=== PATIENT | female | born 1965 | race Two or more races ===

== ENCOUNTER 2025-06-25 06:38 | Inpatient (IN) | payer OTHER ==
[~2025-06-25] VITALS: Ht 165.1 cm; Wt 90.2 kg
[2025-06-25] VITALS (16 sets, daily range): BP systolic 112–149; BP diastolic 60–92; PULSE 52–79; RESP 11–20; TEMP 97.7–98.8; O2SAT 95–100
[~2025-06-25 06:38] MED LIST: APIX5TAB PO; ATOR20TA PO; EMPA1TAB3 PO; LOSA100T33 PO; SITA50TA28 PO
[2025-06-25] MEDS: IODIXANOL 320MG/ML 100ML BTL IV ONE ×2 (07:20→08:43)
--- NOTE | 2025-06-25 07:52 | ECG ---
[facility] Test Date: 2025-06-25 Test Time: 07:31:29 Pat Name: REID GARCÍA Department: Room: [address] [place] [address] Gender: F Supervisor [employer]: : 1965 Requested By: RAFA ABDI Order Number: [id number] Reading MD: Adi Salazar Measurements Intervals Bruno Rate: 62 P: -19 MD: 132 QRS: -71 QRSD: 82 T: 17 QT: 436 QTc: 442 Interpretive Statements Normal sinus rhythm Left axis deviation Pulmonary disease pattern RSR' or QR pattern in V1 suggests right ventricular conduction delay Septal infarct , age undetermined Electronically Signed On 06-25-2025 22:18:08 PDT by Adi Salazar Please click the below link to view image of tracing.
[2025-06-25] MEDS: LIDOCAINE 2%HCL (LOCAL ANESTH.) INJ 20ML MDV ONE (07:59)
[2025-06-25] MEDS: HEPARIN SODIUM (PORCINE) 5000 UNITS/ML 1ML VIAL ONE (07:59)
[2025-06-25] MEDS: VERAPAMIL 2.5MG/ML INJ 2ML VIAL IV ONE (07:59)
[2025-06-25] MEDS: fentaNYL CITRATE 100 MCG/2 ML VL ONE (08:03)
[2025-06-25] MEDS: MIDAZOLAM HCL 2MG/2ML 2ml VIAL (1mg/ml) ONE (08:03)
[2025-06-25] MEDS: ANGIOMAX 250 MG VIAL IV ONE (08:29)
[2025-06-25] MEDS: SODIUM CHL 0.9% 50 ML ONE (08:29)
[2025-06-25] MEDS: TICAGRELOR 90 MG TAB ONE (08:54)
[2025-06-25] MEDS ORDERED: MORPHINE SULFATE INJ 2 MG/ml SYRG IV PRN (09:45)
[2025-06-25] MEDS ORDERED: NITROGLYCERIN 0.4 MG SL TAB SL PRN (09:45)
--- NOTE | 2025-06-25 10:46 | DVHOP2 ---
Operative Report Operative Report CARDIAC PRISON OFFICER PROCEDURE REPORT [place], [place] Date of Service: 06/25/25 Applications Trainer: Rafa Abdi MD PROCEDURES PERFORMED: Coronary angiogram, left heart catheterization, conscious sedation administration and supervision, less than 15 minutes; fluoroscopy use and interpretation. sedation 15-30 mins, PTCA 1 vessel, PCI 1 vessel PREOPERATIVE DIAGNOSES: Abnormal stress test with CCS class 3 angina, POSTOP DIAGNOSIS: 1v cad DESCRIPTION OF PROCEDURE: The patient or appropriate family signed informed consent understanding the risks, benefits and alternatives of the procedure, they wished to proceed. The patient was [place] [facility] [place] The patient was prepped in a sterile fashion. Sedation was used per cardiac cath protocol. I administered 2 mL of 2% lidocaine to the right wrist. With an antegrade front wall puncture. I cannulated the right radial artery and placed a 6-[place] Glidesheath slender. Next, an intra-arterial spasmolytic was administered. Next, a - 6[place] catheter and XB 3.5 and XB 3 guide and were used for coronary angiogram and LVEDP measurement and pressure pullback. At the completion of procedure, all guides and wires were removed, and there were no immediate complications. FINDINGS: RCA: Moderate vessel off the right sinus of Valsalva, there is no severe flow limiting stenosis. mild prox RCA plaque and rpda 30% stenosis diffuse LEFT MAIN: Moderate size left main, it bifurcates into LAD and circumflex. patent CIRCUMFLEX: Moderate caliber vessel coming off the left main with no flow limiting stenosis. OM1 has an ostial 60% stenosis. mid and distal CX is patent . LAD: LAD is a moderate caliber vessel coming of the left main. prox LAD is patent but very tortous vessel. mid LAD has a focal 80% stenosis after a llarge bend. apical LAD is patent with mild plaque INTERVENTION: We decided to proceed with coronary intervention. I started with a 6F __XB 3.5 __ Guide to intubate the _LM but the guide preferred the CX . therefore i changed to a shorter XB 3 guide and intubated the LM _. Angiomax bolus and gtt was started. Following this, I decided to wire using an .014 choice PT floppy across the culprit lesion with ease. At this time, we performed balloon angioplasty with a _2.5 x 15 mm [id number]__ ATMS over __15__ seconds with __2__ number of inflations. Following this, I decided to place a stent using a 2.5 x 18 mm onyx____ stent inflated up to __16__ ATMS over 15 seconds with two separate inflations. Following this, the stent balloon removed and angio performed showing 0% residual stenosis. RUFUS pre/post: 3./3 CONCLUSIONS: 1. sp pci to 80% mid LAD hazy stenosis PLAN: Aggressive risk factor modification and medical management for the patient. plavix x 1 year resume DOAC eliquis for hx of AFib but pt is currently in SR RAFA ABDI MD Jun 25, 2025 10:46
[2025-06-25] MEDS: MORPHINE SULFATE INJ 2 MG/ml SYRG IV ONE (12:46)
[2025-06-25] MEDS: CLOPIDOGREL BISULFATE 75 MG TAB PO ONE (18:16)
[2025-06-26 01:00] VITALS: BP 123/74; PULSE 55; RESP 18; TEMP 98.2; O2SAT 98
[2025-06-26 05:00] VITALS: BP 122/67; PULSE 68; RESP 18; TEMP 98.2; O2SAT 97
--- NOTE | 2025-06-26 07:46 | ECG ---
[facility] Test Date: 2025-06-25 Test Time: 09:02:41 Pat Name: REID GARCÍA Department: Room: [address] [place] [address] 4 Gender: F [employer] Operator: : 1965 Requested By: RAFA ABDI Order Number: [id number] Reading MD: Adi Salazar Measurements Intervals Andrews Rate: 55 P: 43 CA: 168 QRS: -59 QRSD: 84 T: 14 QT: 470 QTc: 449 Interpretive Statements Sinus bradycardia Left axis deviation RSR' or QR pattern in V1 suggests right ventricular conduction delay Septal infarct , age undetermined Electronically Signed On 06-26-2025 22:53:20 PDT by Adi Salazar Please click the below link to view image of tracing.
[2025-06-26 08:00] VITALS: PULSE 76; PULSE 91; RESP 18
[2025-06-26 09:23] VITALS: BP 132/88; PULSE 66; RESP 20; TEMP 97.9; O2SAT 97
[2025-06-26] MEDS ORDERED: CLOP75TA70 PO (10:06)
[2025-06-26] MEDS: CLOPIDOGREL BISULFATE 75 MG TAB PO SCH (10:13)
[2025-06-26 11:14] VITALS: BP 132/72; PULSE 77; RESP 20; TEMP 98.8; O2SAT 97
== END 2025-06-26 12:20 | disposition home or self-care (01) | DRG 322 ==
LOC: CATH 06:38 → OVERFLOW 09:38 → TELE-EAST 14:50
PROVIDERS: ADMIT Internal Medicine; ATTEND Internal Medicine
PROC: 027034Z Dilation of Coronary Artery, One Artery with Drug-eluting Intraluminal Device, Percutaneous Approach (ICD-10-PCS; principal; 2025-06-25)
PROC: 4A023N7 Measurement of Cardiac Sampling and Pressure, Left Heart, Percutaneous Approach (ICD-10-PCS; 2025-06-25)
PROC: B211YZZ Fluoroscopy of Multiple Coronary Arteries using Other Contrast (ICD-10-PCS; 2025-06-25)
DX: I25.10 Atherosclerotic heart disease of native coronary artery without angina pectoris (principal); Z79.899 Other long term (current) drug therapy
CPT/HCPCS: 92928; 93005; 93458; 99152; C1874; G0378; J2250; Q9967